=== PATIENT | male | born 1945 | race Caucasian/White ===

== ENCOUNTER → 2019-08-18 07:54 | Outpatient (CLI) | payer MEDICARE, BC ==
[2014-09-01 09:32] VITALS: BMI 28.6
[~2019-08-18 07:54] MED LIST: BAYER CHEWABLE81 MG PO; COLACE100 MG PO; HYDROCODONE-APA1 TAB PO; KLOR-CON M2020 MEQ PO; LASIX40 MG PO; LISINOPRIL-HCTZ1 T13 PO; LOPRESSOR25 MG PO; NORVASC10 MG PO; PRINIVIL20 MG PO; SENNA8.6 MG PO; VALIUM5 MG PO
== END | disposition home or self-care (01) ==
LOC: D.CT 07:54
PROVIDERS: ATTEND Internal Medicine Cardiovascular Disease
DX: I65.29 Occlusion and stenosis of unspecified carotid artery (principal)

== ENCOUNTER → 2020-10-28 07:33 | Outpatient (CLI) | payer MEDICARE, BC ==
[2014-09-01 09:32] VITALS: BMI 28.6
== END | disposition home or self-care (01) ==
LOC: D.US 07:33
PROVIDERS: ATTEND Internal Medicine Interventional Cardiology
DX: I65.23 Occlusion and stenosis of bilateral carotid arteries (principal)